=== PATIENT | male | born 1960 | race Caucasian/White ===

== ENCOUNTER → 2016-12-14 | Outpatient (CLI) | payer OTHER ==
--- NOTE | 2016-12-14 09:43 | DIAGNOSTIC IMAGING REPORT ---
MRI OF THE CERVICAL SPINE WITHOUT CONTRAST CLINICAL HISTORY: Cervical radiculopathy at C6-C7, left greater than right. COMPARISON: None. TECHNIQUE: Utilizing a 1.5 Esperanza magnet and dedicated coil, multiplanar, multiecho imaging of the cervical spine was performed without IV contrast. FINDINGS: Alignment of the cervical spine is anatomic. Vertebral body heights are maintained. Cervical cord signal and caliber are normal. There is no intracanalicular mass or fluid collection. Visualized portions of the posterior fossa are unremarkable. Paravertebral soft tissues are unremarkable. C2-C3: The central canal and neural foramen are patent. C3-C4: The central canal and right neural foramen are patent. There is mild narrowing of the left neural foramen due to uncovertebral hypertrophy. C4-C5: The central canal is patent. There is mild narrowing of the right neural foramen due to uncovertebral hypertrophy. C5-C6: Posterior disc osteophyte complex results in mild narrowing of the central canal. There is moderate narrowing of the right neural foramen due to uncovertebral hypertrophy and disc osteophyte complex with facet arthrosis. There is also moderate narrowing of the left neural foramen at this level. C6-C7: Posterior disc osteophyte complex results in mild to moderate narrowing of the central canal which indents the ventral aspect of the cord. There is mild right and severe left neural foraminal narrowing at this level. C7-T1: Central canal and neural foramen are patent. IMPRESSION: 1. Multilevel degenerative disc disease most pronounced at C6-C7 where posterior disc osteophyte complex results in mild to moderate narrowing of the central canal with left greater than right neural foraminal stenosis. 2. Mild central canal stenosis at C5-C6 with moderate bilateral neural foraminal narrowing. 3. Normal cervical cord signal and caliber. Electronically signed by: Rivera Bucio M.D. 12/14/2016 9:42 AM Dictated Date/Time: 12/14/2016 9:36 AM
== END | disposition home or self-care (01) ==
LOC: C.MRIBC 08:43
PROVIDERS: ATTEND Pain Medicine Interventional Pain Medicine
DX: M50.123 Cervical disc disorder at C6-C7 level with radiculopathy (principal); M25.78 Osteophyte, vertebrae